=== PATIENT | female | born 1980 | race Asian ===

== ENCOUNTER 2020-08-08 16:50 | Outpatient (CLI) | payer MEDICAID | END 2020-08-08 16:51 | disposition home or self-care (01) | LOC: COV 16:50 | PROVIDERS: ATTEND Family Medicine | DX: R05 Cough (principal); M79.10 Myalgia, unspecified site; R53.83 Other fatigue; J02.9 Acute pharyngitis, unspecified; R19.7 Diarrhea, unspecified; R09.81 Nasal congestion; R11.2 Nausea with vomiting, unspecified; Z20.828 Contact with and (suspected) exposure to other viral communicable diseases ==

== ENCOUNTER 2020-10-15 08:00 | Outpatient (CLI) | payer MEDICAID ==
[2020-10-15 10:23] LABS: BASOPHILS % (AUTO) 0.5 %; EOSINOPHILS # (AUTO) 0.1 10^3/uL (0.0-0.7); EOSINOPHILS % (AUTO) 1.9 %; HGB - HEMOGLOBIN 13.5 g/dL (12.0-16.0); LYMPHOCYTES # (AUTO) 1.7 10^3/uL (1.5-3.5); LYMPHOCYTES % (AUTO) 28.3 %; MEAN CORPUSCULAR HEMOGLOBIN 30.1 pg (27.0-31.0); MEAN CORPUSCULAR HGB CONC 33.3 g/dL (32.0-36.0); MEAN CORPUSCULAR VOLUME 90.4 fL (81.0-99.0); MEAN PLATELET VOLUME 9.2 fL (7.9-10.8); MONOCYTES # (AUTO) 0.4 10^3/uL (0.0-1.0); MONOCYTES % (AUTO) 6.3 %; NEUTROPHILS # (AUTO) 3.7 10^3/uL (1.5-6.6); NEUTROPHILS % (AUTO) 62.8 %; PLT - PLATELET COUNT 247 10^3/uL (130-450); RED BLOOD COUNT 4.48 10^6/uL (4.20-5.40); RED CELL DISTRIBUTION WIDTH 11.5 % (12.0-15.0); WHITE BLOOD COUNT 5.8 x10^3/uL (4.8-10.8)
[2020-10-15 10:53] LABS: ALBUMIN 4.3 g/dL (3.2-5.5); ALBUMIN/GLOBULIN RATIO 1.6 (1.0-2.2); ALKALINE PHOSPHATASE 43 IU/L (42-121); ALT ALANINE AMINOTRANSFERASE 14 IU/L (10-60); AST ASPARTATE AMINOTRANSFERASE 18 IU/L (10-42); BILIRUBIN,TOTAL 1.4 mg/dL (0.2-1.0); BUN - BLOOD UREA NITROGEN 13 mg/dL (6-20); CALCIUM 9.3 mg/dL (8.5-10.3); CARBON DIOXIDE - CO2 24 mmol/L (21-32); CHLORIDE 105 mmol/L (101-111); CHOL/HDL RATIO 3.3 (<4.4); CHOLESTEROL 223 mg/dL; CREATININE 0.6 mg/dL (0.4-1.0); GLUCOSE 98 mg/dL (70-100); HDL CHOLESTEROL 67 mg/dL; LDL CHOLESTEROL,CALCULATED 144 mg/dL; LDL/HDL RATIO 2.1 (<4.4); SODIUM 139 mmol/L (135-145); VLDL CHOLESTEROL 12 mg/dL
== END 2020-10-15 08:01 | disposition home or self-care (01) ==
LOC: LAB 08:00
PROVIDERS: ATTEND Physician Assistant
DX: Z00.00 Encounter for general adult medical examination without abnormal findings (principal); M54.89 Other dorsalgia; R53.83 Other fatigue
CPT/HCPCS: 36415; 80053; 80061; 83721; 84443; 85025

== ENCOUNTER 2022-07-21 08:00 | Outpatient (CLI) | payer MEDICAID | END 2022-07-21 23:59 | disposition home or self-care (01) | LOC: LAB.S 08:00 | PROVIDERS: ATTEND Physician Assistant Medical | DX: R39.15 Urgency of urination (principal) | CPT/HCPCS: 87086; 87181 ==

== ENCOUNTER 2022-11-22 11:45 | Outpatient (CLI) | payer MEDICAID ==
[2022-11-22 15:37] LABS: BILIRUBIN,URINE NEGATIVE (NEGATIVE); GLUCOSE, URINE (UA) NEGATIVE (NEGATIVE); KETONES,URINE (UA) NEGATIVE (NEGATIVE); LEUKOCYTE ESTERASE, URINE NEGATIVE (NEGATIVE); NITRITE,URINE NEGATIVE (NEGATIVE); OCCULT BLOOD,URINE NEGATIVE (NEGATIVE); PROTEIN,URINE NEGATIVE (NEGATIVE); UROBILINOGEN,URINE 0.2 (NORMAL) E.U./dL (NORMAL)
[2022-11-22 15:42] LABS: CLARITY,URINE CLEAR (CLEAR)
[2022-11-22 15:47] LABS: BACTERIA,URINE Rare /HPF (None Seen); RBC,URINE None Seen /HPF (0-5); SQUAMOUS EPITHELIAL CELL,UR FEW Squamous (<= Few); WBC,URINE 0-3 /HPF (0-5)
[2022-11-23 01:07] LABS: CHLAMYDIA TRACHOMATIS DNA NEGATIVE (NEGATIVE); NEISSERIA GONORRHOEAE DNA NEGATIVE (NEGATIVE); TRICHOMONAS VAGINALIS DNA NEGATIVE (NEGATIVE)
== END 2022-11-22 23:59 | disposition home or self-care (01) ==
LOC: LAB.WC 11:45
PROVIDERS: ATTEND Nurse Practitioner
DX: Z34.90 Encounter for supervision of normal pregnancy, unspecified, unspecified trimester (principal); Z36.89 Encounter for other specified antenatal screening
CPT/HCPCS: 81001; 81599; 87086; 87491; 87591; 87661

== ENCOUNTER 2022-11-22 12:39 | Outpatient (CLI) | payer MEDICAID ==
[2022-11-22 13:01] LABS: BASOPHILS % (AUTO) 0.3 %; EOSINOPHILS # (AUTO) 0.1 10^3/uL (0.0-0.7); EOSINOPHILS % (AUTO) 0.9 %; HCT - HEMATOCRIT 41.8 % (37.0-47.0); HGB - HEMOGLOBIN 14.1 g/dL (12.0-16.0); LYMPHOCYTES # (AUTO) 1.8 10^3/uL (1.5-3.5); LYMPHOCYTES % (AUTO) 18.1 %; MEAN CORPUSCULAR HGB CONC 33.7 g/dL (32.0-36.0); MEAN CORPUSCULAR VOLUME 88.9 fL (81.0-99.0); MEAN PLATELET VOLUME 9.3 fL (7.9-10.8); MONOCYTES # (AUTO) 0.6 10^3/uL (0.0-1.0); MONOCYTES % (AUTO) 6.2 %; NEUTROPHILS # (AUTO) 7.4 10^3/uL (1.5-6.6); NEUTROPHILS % (AUTO) 74.3 %; PLT - PLATELET COUNT 240 10^3/uL (130-450); RED CELL DISTRIBUTION WIDTH 11.9 % (12.0-15.0)
[2022-11-23 05:11] LABS: RPR Non Reactive (Non Reactive)
[2022-11-23 07:09] LABS: HBsAG SCREEN Negative (Negative); HIV SCREEN 4TH GENERATION Non Reactive (Non Reactive); VARICELLA-ZOSTER AB IGG 280 index (Immune >165)
[2022-11-23 08:10] LABS: HCV AB Non Reactive (Non Reactive)
== END 2022-11-22 12:40 | disposition home or self-care (01) ==
LOC: LAB 12:39
PROVIDERS: ATTEND Nurse Practitioner
DX: Z34.90 Encounter for supervision of normal pregnancy, unspecified, unspecified trimester (principal); Z36.89 Encounter for other specified antenatal screening
CPT/HCPCS: 36415; 85025; 86592; 86762; 86787; 86803; 86850; 86870; 86880; 86900; 86901; 87340; 87389

== ENCOUNTER 2022-12-20 11:41 | Outpatient (CLI) | payer MEDICAID | END 2022-12-20 11:42 | disposition home or self-care (01) | LOC: LAB 11:41 | PROVIDERS: ATTEND Nurse Practitioner | DX: O09.891 Supervision of other high risk pregnancies, first trimester (principal); Z3A.13 13 weeks gestation of pregnancy ==

== ENCOUNTER 2022-12-21 16:56 | Outpatient (CLI) | payer MEDICAID ==
--- NOTE | 2022-12-22 09:06 | Ultrasound Report ---
PROCEDURE: OB First Trimester INDICATIONS: SUPERVISION OF NORMAL OUTSIDE/PRIOR DATING DATA: Last menstrual period (LMP): 09/19/2019. LMP-based estimated date of delivery (ROSALINO): 06/26/2023. First dating scan (date and location): Today's exam. Estimated date of delivery (ROSALINO) from first dating scan: 06/22/2023. The below data below was generated using the ultrasound ROSALINO of 06/22/2023 TECHNIQUE: Real-time scanning was performed of the fetus and maternal pelvic organs, with image documentation. COMPARISON: None FINDINGS: Embryo: Single living intrauterine . [place]-rump length measures 7.9 cm, corresponding to 13 weeks 6 days. Heart rate: 145 bpm Measurement variability in dating: +/- 4 weeks by LMP, +/- 7 days by mean sac diameter (use before 6 weeks gestation if crown-rump length not able to be measured), +/- 5 days by crown-rump length (6-12 weeks gestation). Maternal organs: Right-sided corpus luteum present. IMPRESSION: Single living intrauterine at 13 weeks 6 days, with ROSALINO of 06/22/2023. Findings are concorda nt with clinical dating. Reviewed by: Vance Boggs on 12/22/2022 9:04 AM PDT Approved by: Vance Boggs on 12/22/2022 9:04 AM PDT Station ID: [id number]
== END 2022-12-21 16:57 | disposition home or self-care (01) ==
LOC: DI 16:56
PROVIDERS: ATTEND Nurse Practitioner
DX: Z34.91 Encounter for supervision of normal pregnancy, unspecified, first trimester (principal); Z36.89 Encounter for other specified antenatal screening

== ENCOUNTER 2023-07-04 21:06 | Outpatient (CLI) | payer MEDICAID ==
--- NOTE | 2023-07-04 21:58 | Ultrasound Report ---
PROCEDURE: OB Limited INDICATIONS: POST TERM OUTSIDE/PRIOR DATING DATA: Last menstrual period (LMP): 09/19/2022. LMP-based estimated date of delivery (ROSALINO): 06/26/2023 (reported clinical date). First dating scan (date and location): 12/21/2022. Estimated date of delivery (ROSALINO) from first dating scan: 06/22/2023. TECHNIQUE: Real-time scanning was performed of the fetus, with image documentation. COMPARISON: 12/21/2022 FINDINGS: A single living intrauterine gestation is present. Presentation: Vertex Placenta: Placental position is posterior, without previa. Amniotic fluid index: 8.1 cm heart rate: 131 beats per minutes. Current estimated gestational age is 41 weeks and 1 day Nuchal cord. Incidentally noted echogenic appearance of the stomach. IMPRESSION: Postdates . EDOUARD of 8.1. Nuchal cord. Vertex presentation. Incidentally noted echogenic appearance of the stomach, nonspecific. ultrasound could be ob tained if clinically indicated for surveillance. Reviewed by: Ian Gregg MD on 07/04/2023 9:57 PM PDT Approved by: Ian Gregg MD on 07/04/2023 9:57 PM PDT Station ID: [id number]
== END 2023-07-04 21:07 | disposition home or self-care (01) ==
LOC: DI 21:06
PROVIDERS: ATTEND Midwife
DX: O09.513 Supervision of elderly primigravida, third trimester (principal); O48.0 Post-term pregnancy; Z3A.00 Weeks of gestation of pregnancy not specified